=== PATIENT | female | born 1945 | race Caucasian/White ===

== ENCOUNTER 2017-10-10 13:46 | Emergency (ER) | payer MEDICARE ==
[2017-10-10 13:59] VITALS: BP 148/86
--- NOTE | 2017-10-10 15:26 | UC ---
Back Pain HPI - HPI Summary HPI Summary: c/o falling backward after slipping on the wet floor around 12:30 this afternoon. She states she can stand and walk but she feels very sore on the flanks after the fall and any torsion will trigger the pain. She took about 400mg ibuprofen around 1p. Pain is still very strong. Denies tingling/numbness. Denies incontinence. She has history of osteopenia on vitamin d, calcium and Levothyroxine. - History of Current Complaint Chief Complaint: UCBackPain Stated Complaint: BACK INJURY FROM FALL Time Seen by Provider: 10/10/17 14:19 Hx Obtained From: Patient ?: No Onset/Duration: Sudden Onset, Lasting Hours Timing: Constant Severity Initially: Moderate Severity Currently: Severe Pain Intensity: 8 Character: Dull, Aching Aggravating Factor(s): Movement Alleviating Factor(s): Rest Associated Signs And Symptoms: Positive: Flank Pain - Risk Factors AAA Risk Factors: Negative TAD Risk Factors: Negative Cauda Equina Risk Factors: Negative Epidural Abscess Risk Factors: Negative - Allergies/Home Medications Allergies/Adverse Reactions: Allergies Allergy/AdvReac Type Severity Reaction Status Date / Time amoxicillin Allergy Hives Verified 10/10/17 14:00 bee venom protein (honey bee) Allergy Hives Verified 10/10/17 14:01 Penicillins Allergy Hives Verified 10/10/17 14:00 Sulfa (Sulfonamide Allergy Hives Verified 10/10/17 14:00 Antibiotics) CT DYE Allergy Hives Uncoded 08/15/14 10:27 PMH/Surg Hx/FS Hx/Imm Hx Previously Healthy: Yes Endocrine History: Hypothyroidism GI/ History: Gastroesophageal Reflux Psychological History: Anxiety - Surgical History Surgical History: Yes Surgery Procedure, Year, and Place: CHOLECYSTECTOMY, HYSTERECTOMY. CARPAL TUNNEL. CATARACT - Social History Alcohol Use: Weekly Alcohol Amount: 1/day a couple times per week Substance Use Type: None Smoking Status (MU): Never Smoked Tobacco Review of Systems Musculoskeletal: Arthralgia, Myalgia All Other Systems Reviewed And Are Negative: Yes Physical Exam Triage Information Reviewed: Yes Appearance: Well-Appearing, No Pain Distress, Well-Nourished Vital Signs: Initial Vital Signs Temp 97.6 F 10/10/17 13:56 Pulse 81 10/10/17 13:56 Resp 18 10/10/17 13:56 BP 148/86 10/10/17 13:56 Pulse Ox 100 10/10/17 13:56 Vital Signs Reviewed: Yes Eyes: Positive: Conjunctiva Clear ENT: Positive: Pharynx normal Neck: Positive: Supple, Nontender, No Lymphadenopathy Respiratory: Positive: Chest non-tender, Lungs clear, Normal breath sounds, No respiratory distress Cardiovascular: Positive: RRR, No Murmur, Pulses Normal, Brisk Capillary Refill Abdomen Description: Positive: Nontender, No Organomegaly, Soft Musculoskeletal Exam: Other - SLR negative, hip FROM b/l, pedal pulses symmetric and present. Gait wnl, tiptoe and heel walk wnl. Tender b/l on gluteal area Back Pain Course/Dx - Course Course Of Treatment: start ibuprofen and tizanidine along with ice for 48hrs, referral PT, follow up with PCP - Differential Dx/Diagnosis Provider Diagnoses: Hip sprain s/p Fall Discharge - Discharge Plan Condition: Stable Disposition: HOME Prescriptions: Ibuprofen TAB* [Motrin TAB* 600 MG] 600 mg PO Q8H PRN #60 tab PRN Reason: Pain tiZANidine TAB* [Zanaflex TAB*] 2 mg PO BEDTIME #20 tab Patient Education Materials: Hip Sprain (ED), Musculoskeletal Pain (ED), Irritable Bowel Syndrome (ED) Referrals: Veronica Garcia MD [Primary Care Provider] -
--- NOTE | 2017-10-10 15:33 | RAD ---
INDICATION: Bilateral hip pain after a fall COMPARISON: None TECHNIQUE: 2 views of each hip and an AP view of the pelvis were obtained. FINDINGS: The visualized bones of the hips are well-corticated and properly aligned. The joint spaces are normal.. There is no radiographic evidence of acute fracture or dislocation. There is a large amount of stool overlying the length of the colon, particularly overlying the cecum. IMPRESSION: 1. No radiographically apparent fracture or dislocation of either hip. 2. Incidentally noted is a large volume of stool in the colon. Please correlate to signs and symptoms of constipation. If the patient's symptoms persist follow-up imaging is recommended.
== END 2017-10-10 15:46 | disposition home or self-care (01) ==
LOC: UCEAST 13:46
DX: S73.109A Unspecified sprain of unspecified hip, initial encounter (principal); W01.0XXA Fall on same level from slipping, tripping and stumbling without subsequent striking against object, initial encounter; Y92.9 Unspecified place or not applicable; Z88.0 Allergy status to penicillin; Z88.2 Allergy status to sulfonamides; Z88.3 Allergy status to other anti-infective agents; Z91.041 Radiographic dye allergy status
CPT/HCPCS: 73523; 99212; G0463